=== PATIENT | female | born 1960 | race Caucasian/White ===

== ENCOUNTER → 2016-11-01 | Outpatient (CLI) | payer BC ==
--- NOTE | 2016-11-02 09:43 | RAD ---
DATE: 11/01/2016 EXAM: DIGITAL SCREEN BILAT W/CAD HISTORY: Screening COMPARISON: 07/26/2014 This study was interpreted with the benefit of Computerized Aided Detection (CAD). FINDINGS: Breast Density: SCATTERED The breast parenchyma shows scattered fibroglandular densities. Breast parenchyma level B. There has not been a significant change in the appearance of the breasts since the previous exam IMPRESSION: Benign findings BI-RADS CATEGORY: 2 BENIGN FINDING(S) RECOMMENDED FOLLOW-UP: 12M 12 MONTH FOLLOW-UP PQRS compliance statement: Patient information was entered into a reminder system with a target due date 11/01/2017 for the next mammogram. Mammography is a sensitive method for finding small breast cancers, but it does not detect them all and is not a substitute for careful clinical examination. A negative mammogram does not negate a clinically suspicious finding and should not result in delay in biopsying a clinically suspicious abnormality. "Our facility is accredited by the [employer] Mammography Program."
== END | disposition home or self-care (01) ==
LOC: MAMMO 14:46
PROVIDERS: ATTEND Physician Assistant Medical
DX: Z12.31 Encounter for screening mammogram for malignant neoplasm of breast (principal); Z01.419 Encounter for gynecological examination (general) (routine) without abnormal findings
CPT/HCPCS: G0202; 77067

== ENCOUNTER → 2018-01-31 | Outpatient (CLI) | payer BC ==
[~2018-01-31] MED LIST: IOHEXOL 240 MG/ML 50ML VIAL. ONE; IOHEXOL 300 MG/ML 75 ML VIAL. IV ONE
--- NOTE | 2018-01-31 10:06 | RAD ---
CT abdomen and pelvis with contrast History: Right flank pain, cramping, lower abdominal pain Technique: After the administration of oral and intravenous contrast, CT imaging was performed of the abdomen and pelvis. Multiplanar images are reviewed. Exposure: One or more of the following individualized dose reduction techniques were utilized for this examination: 1. Automated exposure control 2. Adjustment of the mA and/or kV according to patient size 3. Use of iterative reconstruction technique. Contrast: 75 cc Omnipaque 300 Comparison: None Findings: There is some coronary calcification. The There is no significant focal abnormality of the spleen, pancreas, adrenal glands. There is hepatic steatosis and areas of focal fatty sparing. There is a hypodense lesion of the right lobe of the liver about 1.5 cm, density measurements of a cyst 3 Hounsfield units. Both kidneys enhance without hydronephrosis. Gallbladder is present without obvious intraluminal abnormality by CT. While not associated with significant inflammatory change of the adjacent fat and this segment of the bowel not fully opacified with oral contrast, there is likely wall thickening of the terminal ileum. There is also possible mild small bowel wall thickening in the left pelvic region although this segment of the bowel also not distended with oral contrast. There is no evidence of bowel obstruction, free fluid, or free air. Normal appendix is visualized. There is mild fat in the inguinal canals bilaterally, no bowel. There is mild superior lumbar levoscoliosis. There is multilevel advanced degenerative disc disease including of thoracic spine and also of the lumbar spine. There are interbody cages L4-5 at which there is fusion, posterior decompression L4-5. There is multilevel spondylosis. There is multilevel neural foramina compromise, more significant narrowing on the left at L3-4 and L2-3 and on the right at L1-L2 and L3-4, to lesser degree on the right at L2-3 and bilaterally at L5-S1. There is multilevel lumbar facet degenerative change. There is suspected moderate to severe spinal stenosis L2-3, also lateral recess stenosis bilaterally greater on the left at L3-4. Impression: 1. While somewhat limited evaluation as not fully opacified with oral contrast, there is suggestion of small bowel wall thickening involving the terminal ileum and possibly in the left pelvis as may be seen with enteritis. There is no CT evidence of acute appendicitis. There is no free fluid. 2. There is minimal fat in the inguinal canals bilaterally, no bowel. 3. There is hepatic steatosis and areas of focal fatty sparing. 4. There is multilevel advanced degenerative disc disease, multilevel spondylosis. There is suspected moderate to severe spinal stenosis L2-3, also lateral recess stenosis bilaterally at L3-4. There is multilevel lumbar neural foramina compromise. 5. There is some coronary calcification. 6. There is hepatic cyst. Electronically signed by: Brad Ramos MD (01/31/2018 10:02 AM) [id number]
== END | disposition home or self-care (01) ==
LOC: CT 07:49
PROVIDERS: ATTEND Internal Medicine Gastroenterology
DX: M51.36 Other intervertebral disc degeneration, lumbar region (principal); M47.896 Other spondylosis, lumbar region; M48.061 Spinal stenosis, lumbar region without neurogenic claudication; K76.89 Other specified diseases of liver; K76.0 Fatty (change of) liver, not elsewhere classified; I25.10 Atherosclerotic heart disease of native coronary artery without angina pectoris
CPT/HCPCS: 74177; Q9966; Q9967

== ENCOUNTER → 2018-02-27 | Outpatient (CLI) | payer BC ==
[~2018-02-27] MED LIST changes: +BARIUM SULFATE 60% 355 ML SUSP PO ONE; -IOHEXOL 240 MG/ML 50ML VIAL. ONE; -IOHEXOL 300 MG/ML 75 ML VIAL. IV ONE
--- NOTE | 2018-02-27 13:35 | RAD ---
SMALL BOWEL SERIES History: Right flank pain for one year Comparison: None. Findings: Small bowel examination was performed. [facility] [employer] radiograph demonstrates lumbar levoscoliosis and multilevel lumbar degenerative disc disease and spondylosis. There are some small calcific opacities in the left abdomen, possibly could be in the kidney. There are interbody cages at inferior lumbar level. Caliber of the small bowel is within normal limits, no definitive stricture. Terminal ileum is normal in caliber without definitive irregularity. There is normal transit of the contrast through the small bowel by about 40 minutes. Impression: 1. No significant abnormality is identified of the small bowel by this exam. 2. There are some small calcific opacities of the left abdomen, possibly in the kidney. 3. There is lumbar levoscoliosis, also multilevel lumbar degenerative disc disease and spondylosis. Electronically signed by: Brad Ramos MD (02/27/2018 1:31 PM) [id number]
== END | disposition home or self-care (01) ==
LOC: RAD 08:04
PROVIDERS: ATTEND Internal Medicine Gastroenterology
DX: M51.36 Other intervertebral disc degeneration, lumbar region (principal); M47.896 Other spondylosis, lumbar region; M41.86 Other forms of scoliosis, lumbar region
CPT/HCPCS: 74250

== ENCOUNTER → 2020-01-07 | Outpatient (CLI) | payer OTHER ==
[2020-01-07 12:04] LABS: BASO % 1 % (0-3); EOS # 0.1 x10^3/uL (0.0-0.7); EOS % 1 % (0-3); HEMATOCRIT 41.5 % (36.0-47.0); HEMOGLOBIN 14.1 g/dL (12.0-15.5); LYMPH # 1.5 x10^3/uL (1.0-4.8); LYMPH % 25 % (24-48); MEAN CORPUSCULAR HEMOGLOBIN 32 pg (25-35); MEAN CORPUSCULAR HGB CONC 34 g/dL (31-37); MEAN CORPUSCULAR VOLUME 95 fL (79-100); MONO # 0.5 x10^3/uL (0.0-1.1); MONO % 8 % (0-9); NEUT # 3.9 x10^3uL (1.8-7.7); NEUT % 66 % (31-73); PLATELET COUNT 371 x10^3/uL (140-400); RED BLOOD COUNT 4.36 x10^6/uL (3.50-5.40); RED CELL DISTRIBUTION WIDTH 12.2 % (11.5-14.5); WHITE BLOOD COUNT 5.9 x10^3/uL (4.0-11.0)
[2020-01-07 12:06] LABS: ALBUMIN 3.5 g/dL (3.4-5.0); ALBUMIN/GLOBULIN RATIO 0.8 (1.0-1.7); CREATININE 0.8 mg/dL (0.6-1.0); GFR 73.4; POTASSIUM 3.4 mmol/L (3.5-5.1); TOTAL BILIRUBIN 0.4 mg/dL (0.2-1.0); TOTAL PROTEIN 8.1 g/dL (6.4-8.2)
--- NOTE | 2020-01-07 12:37 | RAD ---
Examination: 1. C-spine 3 views 2. L-spine 3 views INDICATION: Neck and back pain COMPARISON: None FINDINGS: C-spine: AP lateral and odontoid views of the cervical spine show reversal normal cervical lordosis, apex at C5-C6. There is mild retrolisthesis of C5 on C6 and osteophytic spurring at C5-C6 both anteriorly and posteriorly is present, likely resulting in some degree of central canal stenosis. Multilevel facet degenerative changes are present as well, more conspicuous on the right in the mid cervical spine and on the left. No fracture or aggressive osseous lesions are seen. The prevertebral soft tissues show no prevertebral soft tissue swelling or abnormal soft tissue gas. L-spine: 6 lumbar type vertebrae. In the inferior most lumbar type vertebra is L6, then there is interbody fusion at L5 L6. Alignment shows mild leftward convexity scoliotic curvature, apex at L1. No acute fracture. Generalized demineralization. Multilevel disc degenerative change and facet hypertrophic changes present. This results in multilevel foraminal stenosis at multiple levels due to varying levels. There is evidence of posterior decompression at L5 -L6. Impression: 1. Multilevel cervical degenerative spondylosis with reversal normal lordosis and likely at least moderate bony central canal stenosis at C5-C6. This can be evaluated in greater detail with cross-sectional imaging as clinically warranted. 2. Multilevel lumbar spinal degenerative spondylosis status post L5-L6 posterior decompression and interbody fusion. No acute fracture or aggressive osseous lesions. Electronically signed by: Ceasar Negro MD (01/07/2020 12:34 PM) [id number]
== END | disposition home or self-care (01) ==
LOC: DXRAD 10:48
PROVIDERS: ATTEND Family Medicine
DX: M47.816 Spondylosis without myelopathy or radiculopathy, lumbar region (principal); M47.812 Spondylosis without myelopathy or radiculopathy, cervical region; M43.8X6 Other specified deforming dorsopathies, lumbar region; M43.12 Spondylolisthesis, cervical region; M43.26 Fusion of spine, lumbar region; R53.83 Other fatigue; I10 Essential (primary) hypertension; E55.9 Vitamin D deficiency, unspecified; M40.50 Lordosis, unspecified, site unspecified; M48.061 Spinal stenosis, lumbar region without neurogenic claudication
CPT/HCPCS: 36415; 72040; 72100; 80053; 82306; 85025

== ENCOUNTER → 2021-05-04 | Outpatient (CLI) | payer OTHER ==
--- NOTE | 2021-05-04 12:13 | RAD ---
BILATERAL DIGITAL SCREENING 2-D AND 3-D MAMMOGRAM INDICATION: Routine screening. COMPARISON: November 01, 2016, Interpretation was made using CAD. FINDINGS: Breast Density: There are scattered areas of fibroglandular density. RIGHT BREAST: There is motion artifact involving the right MLO 2-D view. LEFT BREAST: There is motion artifact involving the upper aspect of the left MLO 2-D view. IMPRESSION: 1. Incomplete. Bilateral motion artifact as above. Patient should return for repeat bilateral 2-D ML O views. An addendum will be issued once these views are obtained. ASSESSMENT: BI-RADS 0. Incomplete Assessment. Additional imaging is necessary. RECOMMENDATION: Repeat bilateral to the MLO views. The facility will notify the patient of the results via mail. Patient information will be entered int o the mammography reminder system with a target recall date for the next mammogram. A reminder letter will be generated by the facility. Electronically signed by: Diann Mensah MD (05/04/2021 12:11 PM) [id number]
== END ==
LOC: MAMMO 10:52
PROVIDERS: ATTEND Obstetrics & Gynecology
DX: Z12.31 Encounter for screening mammogram for malignant neoplasm of breast (principal)
CPT/HCPCS: 77063; 77067